=== PATIENT | male | born 1955 | race Caucasian/White ===

== ENCOUNTER → 2019-05-12 | Outpatient (CLI) | payer OTHER ==
[~2019-05-12] MED LIST: CRESTOR20 MG PO; DICYCLOMINE HCL10 MG PO; MECLIZINE HCL25 M1 PO; PRILOSEC 20 MG20 MG PO; VALIUM2 MG PO; ZOFRAN ODT4 MG PO; ZOLOFT25 MG PO
== END ==
LOC: CAT 10:56
DX: Z13.6 Encounter for screening for cardiovascular disorders (principal); E78.00 Pure hypercholesterolemia, unspecified; I25.10 Atherosclerotic heart disease of native coronary artery without angina pectoris

== ENCOUNTER → 2019-12-06 | Outpatient (CLI) | payer OTHER | LOC: LAB 12:52 | PROVIDERS: ATTEND Neuromusculoskeletal Medicine & OMM | DX: Z20.828 Contact with and (suspected) exposure to other viral communicable diseases (principal); R50.9 Fever, unspecified; R42 Dizziness and giddiness ==